=== PATIENT | male | born 1960 | race Caucasian/White ===

== ENCOUNTER 2022-02-24 02:15 | Emergency (ER) | payer BC, OTHER ==
[~2022-02-24] VITALS: Ht 180.3 cm; Wt 81.6 kg
[2022-02-24] MEDS ORDERED: IBUP800T27 PO (07:26)
[2022-02-24] MEDS ORDERED: KETOROLAC TROMETH 60MG/2ML VIAL IM ONE (07:30)
[2022-02-24 07:55] VITALS: BP 154/73
== END 2022-02-24 07:47 | disposition home or self-care (01) ==
LOC: ER 02:15
DX: M50.30 Other cervical disc degeneration, unspecified cervical region (principal); E11.9 Type 2 diabetes mellitus without complications
CPT/HCPCS: 72040; 96372; 99283; J1885

== ENCOUNTER 2023-12-18 02:20 | Inpatient (IN) | payer BC ==
[~2023-12-18] VITALS: Ht 180.3 cm; Wt 96.1 kg
[~2023-12-18 02:20] MED LIST: IBUP-1456 PO
[2023-12-18] MEDS: ONDANSETRON ODT 4 MG TAB PO ONE (03:53)
[2023-12-18] MEDS: KETOROLAC TROMETH 60MG/2ML VIAL IM ONE (03:53)
[2023-12-18] MEDS: ONDANSETRON HCL 4 MG/2 ML VIAL IV ONE (04:33)
[2023-12-18] MEDS: SODIUM CHLORIDE 0.9% 1,000 ML IVB ONE (04:33)
[2023-12-18] MEDS: KETOROLAC TROMETH 30 MG/ML 1ML VIAL IV ONE (04:33)
[2023-12-18 04:44] LABS: Basophils # (auto) 0 10 ^3/uL (0-0.2); Basophils % (auto) 0.2 % (0.0-2.0); Eosinophils # (auto) 0.1 10 ^3/uL (0-0.8); Eosinophils % (auto) 0.5 % (0.0-7.0); Hematocrit 43.8 % (41.0-53.0); Hemoglobin 14.5 g/dL (13.5-17.5); Lymphocytes % (auto) 13.1 % (10.0-50.0); Mean Corpuscular Hemoglobin 30.2 pg (28.0-32.0); Mean Corpuscular Volume 91.3 fL (80.0-100.0); Monocytes # (auto) 0.8 10 ^3/uL (0-1.3); Monocytes % (auto) 5.1 % (0.0-12.0); Neutrophils % (auto) 81.1 % (37.0-80.0); Nucleated Red Blood Cells % 0.1 %; Red Cell Distribution Width 13.4 % (11.8-14.3); White Blood Cell 14.9 10^3/uL (4.4-10.8)
[2023-12-18 04:52] LABS: Amphetamine Screen, Urine Neg (NEGATIVE); Barbiturate Scree,Urine Neg (NEGATIVE); Benzodiazephine Screen, Urine Neg (NEGATIVE); Cannabinoid Screen, Urine Neg (NEGATIVE); Cocaine Screen, Urine Neg (NEGATIVE); Opiate Scree,Urine Neg (NEGATIVE); Phencyclidine Screen, Urine Neg (NEGATIVE)
[2023-12-18 04:56] LABS: Alanine Aminotransferase 28 U/L (7-40); Albumin 4.6 g/dL (3.2-4.8); Alkaline Phosphatase 103 U/L (46-116); Anion Gap 9 (5-15); Aspartate Aminotransferase 23 U/L (13-40); BUN/Creatinine Ratio 22.2 (10.0-20.0); Bilirubin, Total 0.7 mg/dL (0.2-1.0); Blood Urea Nitrogen 20 mg/dL (9-23); Calcium 9.3 mg/dL (8.7-10.4); Carbon Dioxide 21 mmol/L (20-30); Chloride 107 mmol/L (98-107); Glucose 223 mg/dL (74-106); Lipase 28 U/L (12-53); Potassium 4.2 mmol/L (3.5-5.1); Sodium 137 mmol/L (136-145); Total Protein 7.3 g/dL (5.7-8.2)
[2023-12-18 04:57] LABS: INR 0.98 (0.9-1.15); Partial Thromboplastin Time 25.9 SEC (24.5-34.5); Prothrombin Time 10.3 sec (9.3-11.8)
[2023-12-18 04:57] LABS: Urine Bacteria NONE SEEN /hpf (None Seen); Urine Blood 3+ /uL (Negative); Urine Clarity CLOUDY (Clear); Urine Color Red (Yellow); Urine Protein, UAD 2+ (Negative); Urine Urobilinogen Normal (Negative); Urine WBC 11 /hpf (0 - 3); Urine WBC Clumps PRESENT /hpf (None Seen); Urine pH 6.5 (5.0-8.0)
[2023-12-18] MEDS: PIPERACILLIN-TAZOB 3.375GM 100 ML IV ONE (05:13)
[2023-12-18 08:01] VITALS: PULSE 67; RESP 16; O2SAT 98
[2023-12-18] MEDS ORDERED: DEXTROSE (50%) 50ML SYRG IV PRN (09:45)
[2023-12-18] MEDS ORDERED: ACETAMINOPHEN 325 MG TAB PO PRN (09:45)
[2023-12-18] MEDS ORDERED: ONDANSETRON HCL 4 MG/2 ML VIAL IV PRN (09:45)
[2023-12-18] MEDS: SODIUM CHLORIDE 0.9% 1,000 ML IV SCH (10:40)
[2023-12-18] MEDS: HYDROcodone-ACET 5/325MG TAB PO PRN (10:48)
[2023-12-18] MEDS: IOHEXOL 300 MG/ML 100ML BOTTLE IJ ONE (10:52)
[2023-12-18] MEDS: ACCU-CHEK COMFORT CURVE STRIP VI SCH (17:06)
[2023-12-18] MEDS: InsuLIN REG 1unit/0.01ml Soln (100units/ml) SC SCH (17:07)
[2023-12-18 19:20] VITALS: PULSE 91; RESP 16; O2SAT 96
[2023-12-18] MEDS: DOCUSATE SOD 100 MG CAP PO PRN (21:40)
[2023-12-18 23:21] VITALS: BP 148/74; PULSE 85; RESP 20; TEMP 98.6; O2SAT 95
[2023-12-19] VITALS (7 sets, daily range): BP systolic 137–144; BP diastolic 68–81; PULSE 100–108; RESP 18–20; TEMP 98.2–99; O2SAT 94–100
[2023-12-19] MEDS ORDERED: INSU100I54 SC (05:13)
[2023-12-19] MEDS: BISACODYL 10 MG RECT SUPP PR ONE (05:54)
[2023-12-19 06:24] LABS: Basophils # (auto) 0 10 ^3/uL (0-0.2); Basophils % (auto) 0.1 % (0.0-2.0); Eosinophils # (auto) 0 10 ^3/uL (0-0.8); Hematocrit 42.7 % (41.0-53.0); Lymphocytes # (auto) 1.4 10 ^3/uL (0.4-5.4); Lymphocytes % (auto) 8.5 % (10.0-50.0); Mean Corpuscular Hemoglobin 30.1 pg (28.0-32.0); Mean Corpuscular Hgb Conc. 32.7 g/dL (32.0-36.0); Monocytes # (auto) 1.2 10 ^3/uL (0-1.3); Monocytes % (auto) 7.5 % (0.0-12.0); Neutrophils # (auto) 13.9 10 ^3/uL (1.6-8.6); Neutrophils % (auto) 83.9 % (37.0-80.0); Red Blood Cells 4.65 10^6/uL (4.5-5.90); Red Cell Distribution Width 13.6 % (11.8-14.3); White Blood Cell 16.6 10^3/uL (4.4-10.8)
[2023-12-19 06:46] LABS: Alanine Aminotransferase 21 U/L (7-40); Albumin 4.4 g/dL (3.2-4.8); Alkaline Phosphatase 90 U/L (46-116); Anion Gap 10 (5-15); Aspartate Aminotransferase 22 U/L (13-40); BUN/Creatinine Ratio 10.2 (10.0-20.0); Bilirubin, Total 1.4 mg/dL (0.2-1.0); Blood Urea Nitrogen 13 mg/dL (9-23); Calcium 9.3 mg/dL (8.5-10.1); Carbon Dioxide 20 mmol/L (20-30); Chloride 108 mmol/L (98-107); Glucose 181 mg/dL (74-106); Sodium 138 mmol/L (136-145); Total Protein 7.5 g/dL (5.7-8.2)
[2023-12-19] MEDS: cefTRIAXone 1GM/50ML D5W 50 ML IV SCH (08:11)
[2023-12-19] MEDS: MORPHINE SULFATE INJ 2 MG/ml SYRG IV PRN (12:38)
[2023-12-19] MEDS ORDERED: PROPOFOL 10 MG/ML 20 ML IV ONE (15:22)
[2023-12-19] MEDS ORDERED: fentaNYL CITRATE 100 MCG/2 ML VL ONE (15:22)
[2023-12-19] MEDS ORDERED: DexAMETHasone SOD PHOS 10MG/1ML VIAL INJ ONE (16:01)
[2023-12-19] MEDS ORDERED: ONDANSETRON HCL 4 MG/2 ML VIAL ONE (16:01)
[2023-12-19] MEDS ORDERED: ePHEDrine SULFATE 50 MG/ML AMP ONE (16:05)
[2023-12-19] MEDS ORDERED: MEPERIDINE HCL (25 MG/ML) 1ML VIAL ONE (16:39)
[2023-12-19] MEDS ORDERED: ONDANSETRON HCL 4 MG/2 ML VIAL IV PRN (17:15)
[2023-12-19] MEDS ORDERED: HYDROmorphone HCL 2 MG/ML VL/or syr IV PRN (17:15)
[2023-12-19] MEDS ORDERED: MEPERIDINE HCL (25 MG/ML) 1ML VIAL IV PRN (17:15)
[2023-12-19] MEDS: IOHEXOL 300 MG/ML 100ML BOTTLE IJ ONE (18:26)
[2023-12-20 05:00] VITALS: BP 131/63; PULSE 76; RESP 16; TEMP 98.2; O2SAT 97
[2023-12-20 06:23] LABS: Basophils # (auto) 0 10 ^3/uL (0-0.2); Basophils % (auto) 0.1 % (0.0-2.0); Eosinophils # (auto) 0 10 ^3/uL (0-0.8); Hematocrit 43.6 % (41.0-53.0); Hemoglobin 14.3 g/dL (13.5-17.5); Lymphocytes # (auto) 1.1 10 ^3/uL (0.4-5.4); Lymphocytes % (auto) 6.5 % (10.0-50.0); Mean Corpuscular Hemoglobin 30.6 pg (28.0-32.0); Mean Corpuscular Hgb Conc. 32.8 g/dL (32.0-36.0); Mean Corpuscular Volume 93.3 fL (80.0-100.0); Monocytes # (auto) 1.4 10 ^3/uL (0-1.3); Neutrophils # (auto) 14.4 10 ^3/uL (1.6-8.6); Neutrophils % (auto) 85.4 % (37.0-80.0); Red Blood Cells 4.67 10^6/uL (4.5-5.90); Red Cell Distribution Width 13.3 % (11.8-14.3); White Blood Cell 16.8 10^3/uL (4.4-10.8)
[2023-12-20 06:40] LABS: Chloride 107 mmol/L (98-107); Potassium 4.5 mmol/L (3.5-5.1); Sodium 136 mmol/L (136-145)
[2023-12-20 06:41] LABS: Anion Gap 8 (5-15); Carbon Dioxide 21 mmol/L (20-30)
[2023-12-20 06:42] LABS: Calcium 9.2 mg/dL (8.5-10.1)
[2023-12-20 06:46] LABS: BUN/Creatinine Ratio 8.1 (10.0-20.0); Blood Urea Nitrogen 11 mg/dL (9-23)
[2023-12-20 06:47] LABS: Glucose 285 mg/dL (74-106)
[2023-12-20 08:25] VITALS: BP 154/75; PULSE 86; RESP 20; TEMP 98.3; O2SAT 94
[2023-12-20 08:30] VITALS: BP 135/73; PULSE 80; PULSE 86; RESP 20; TEMP 98.3; O2SAT 94
[2023-12-20 12:27] LABS: Anion Gap 8 (5-15); Carbon Dioxide 23 mmol/L (20-30); Chloride 108 mmol/L (98-107); Potassium 3.9 mmol/L (3.5-5.1); Sodium 139 mmol/L (136-145)
[2023-12-20 12:33] LABS: BUN/Creatinine Ratio 12.3 (10.0-20.0); Blood Urea Nitrogen 15 mg/dL (9-23)
[2023-12-20 12:34] LABS: Glucose 164 mg/dL (74-106)
[2023-12-20 13:02] VITALS: BP 146/69; PULSE 90; RESP 20; TEMP 99; O2SAT 96
[2023-12-20] MEDS: SODIUM CHLORIDE 0.9% 250 ML IV ONE (15:47)
[2023-12-20 17:11] VITALS: BP 131/66; PULSE 96; RESP 20; TEMP 99.9; O2SAT 95
[2023-12-20 22:00] VITALS: BP 137/72; PULSE 94; RESP 16; TEMP 99.8; O2SAT 92
[2023-12-21 05:00] VITALS: BP 138/66; PULSE 85; RESP 18; TEMP 98.2; O2SAT 91
[2023-12-21] MEDS: IOHEXOL 300 MG/ML 100ML BOTTLE IJ ONE (08:03)
[2023-12-21 08:25] VITALS: BP 130/68; PULSE 96; RESP 20; TEMP 98.9; O2SAT 94
[2023-12-21 09:00] VITALS: BP 130/68; PULSE 96; RESP 20; TEMP 98.9; O2SAT 94
[2023-12-21 13:00] VITALS: BP 138/67; PULSE 89; RESP 18; TEMP 97.7; O2SAT 95
[2023-12-21] MEDS: LACTULOSE 20Gm/30ML SOLN PO ONE (14:00)
[2023-12-21 14:07] LABS: Basophils # (auto) 0 10 ^3/uL (0-0.2); Basophils % (auto) 0.1 % (0.0-2.0); Eosinophils # (auto) 0 10 ^3/uL (0-0.8); Hematocrit 39.1 % (41.0-53.0); Hemoglobin 12.6 g/dL (13.5-17.5); Lymphocytes # (auto) 1.4 10 ^3/uL (0.4-5.4); Lymphocytes % (auto) 8.3 % (10.0-50.0); Mean Corpuscular Hemoglobin 30.4 pg (28.0-32.0); Mean Corpuscular Hgb Conc. 32.1 g/dL (32.0-36.0); Mean Corpuscular Volume 94.5 fL (80.0-100.0); Monocytes # (auto) 1.2 10 ^3/uL (0-1.3); Neutrophils % (auto) 84.6 % (37.0-80.0); Red Blood Cells 4.14 10^6/uL (4.5-5.90); Red Cell Distribution Width 13.6 % (11.8-14.3); White Blood Cell 16.6 10^3/uL (4.4-10.8)
[2023-12-21 14:51] LABS: Chloride 108 mmol/L (98-107); Sodium 135 mmol/L (136-145)
[2023-12-21 14:52] LABS: Anion Gap 9 (5-15); Calcium 8.1 mg/dL (8.7-10.4); Carbon Dioxide 18 mmol/L (20-30)
[2023-12-21 14:57] LABS: BUN/Creatinine Ratio 11.8 (10.0-20.0); Blood Urea Nitrogen 13 mg/dL (9-23); Glucose 178 mg/dL (74-106)
[2023-12-21 14:58] LABS: Magnesium 2.3 mg/dL (1.6-2.6)
[2023-12-21 17:00] VITALS: BP 152/76; PULSE 90; RESP 20; TEMP 98.9; O2SAT 95
[2023-12-21] MEDS: GASTROGRAFIN 120 ML SOL ONE (17:30)
[2023-12-21] MEDS ORDERED: CLINIMIX PER PHARMACY 0 ML IV SCH (19:00)
[2023-12-21] MEDS: AMINO ACID INFUSION IN D10W 1,000 ML IV SCH (22:05)
[2023-12-21] MEDS: INSULIN LANTUS (GLARGINE) 1 /0.01ml (100units/ml) SC SCH (22:27)
[2023-12-22 05:00] VITALS: BP 128/67; PULSE 90; RESP 18; TEMP 98.7; O2SAT 91
[2023-12-22 08:05] VITALS: BP 131/67; PULSE 83; PULSE 89; RESP 16; TEMP 98.7; O2SAT 91
[2023-12-22 09:00] VITALS: BP 131/67; PULSE 83; RESP 16; TEMP 98.7; O2SAT 91
[2023-12-22 10:05] LABS: Basophils # (auto) 0 10 ^3/uL (0-0.2); Basophils % (auto) 0.1 % (0.0-2.0); Eosinophils # (auto) 0 10 ^3/uL (0-0.8); Hematocrit 39.1 % (41.0-53.0); Hemoglobin 13.1 g/dL (13.5-17.5); Lymphocytes # (auto) 1.3 10 ^3/uL (0.4-5.4); Lymphocytes % (auto) 9.7 % (10.0-50.0); Mean Corpuscular Hemoglobin 30.5 pg (28.0-32.0); Mean Corpuscular Hgb Conc. 33.4 g/dL (32.0-36.0); Mean Corpuscular Volume 91.4 fL (80.0-100.0); Monocytes # (auto) 1.2 10 ^3/uL (0-1.3); Monocytes % (auto) 8.9 % (0.0-12.0); Neutrophils # (auto) 11.1 10 ^3/uL (1.6-8.6); Neutrophils % (auto) 81.3 % (37.0-80.0); Red Blood Cells 4.28 10^6/uL (4.5-5.90); Red Cell Distribution Width 13.1 % (11.8-14.3); White Blood Cell 13.6 10^3/uL (4.4-10.8)
[2023-12-22 10:07] LABS: Chloride 108 mmol/L (98-107); Potassium 3.2 mmol/L (3.5-5.1); Sodium 138 mmol/L (136-145)
[2023-12-22 10:08] LABS: Anion Gap 8 (5-15); Calcium 8.5 mg/dL (8.7-10.4); Carbon Dioxide 22 mmol/L (20-30)
[2023-12-22 10:13] LABS: BUN/Creatinine Ratio 18.8 (10.0-20.0); Blood Urea Nitrogen 22 mg/dL (9-23); Glucose 164 mg/dL (74-106)
[2023-12-22 10:14] LABS: Magnesium 2.3 mg/dL (1.6-2.6)
[2023-12-22] MEDS ORDERED: CEPH250C PO (10:38)
[2023-12-22 12:38] VITALS: BP 131/67; PULSE 83; RESP 16; TEMP 98.7; O2SAT 91
[2023-12-22] MEDS: POTASSIUM EFFERVESENT TAB 25 MEQ PO ONE (12:41)
[2023-12-22 13:00] VITALS: BP 117/69; PULSE 85; RESP 18; TEMP 98.8; O2SAT 94
[2023-12-22] MEDS ORDERED: POTA10TA51 PO (13:24)
[2023-12-22 17:00] VITALS: BP 120/65; PULSE 89; RESP 18; TEMP 98.9; O2SAT 93
== END 2023-12-22 16:54 | disposition home or self-care (01) | DRG 664 ==
LOC: ER 02:20 → OVERFLOW 09:44 → CENTRAL 09:44
PROVIDERS: ADMIT Internal Medicine; ATTEND Internal Medicine
PROC: 0TC68ZZ Extirpation of Matter from Right Ureter, Via Natural or Artificial Opening Endoscopic (ICD-10-PCS; 2023-12-19)
PROC: 0W3R8ZZ Control Bleeding in Genitourinary Tract, Via Natural or Artificial Opening Endoscopic (ICD-10-PCS; principal; 2023-12-19 15:47)
DX: N30.91 Cystitis, unspecified with hematuria (principal); N28.89 Other specified disorders of kidney and ureter; N13.9 Obstructive and reflux uropathy, unspecified; E11.9 Type 2 diabetes mellitus without complications; N13.8 Other obstructive and reflux uropathy; N40.1 Benign prostatic hyperplasia with lower urinary tract symptoms
CPT/HCPCS: 36415; 71045; 71275; 74018; 74176; 74177; 74250; 76000; 80048; 80053; 80307; 81001; 82962; 83036; 83615; 83690; 83735; 84100; 84484; 85025; 85610; 85730; 86850; 86900; 86901; 93005; G0378; J1100; J1815; J1885; J2405; J2543; J2704; Q0162